=== PATIENT | male | born 1965 | race Two or more races ===

== ENCOUNTER 2019-06-11 21:58 | Inpatient (IN) | payer MEDICAID ==
[~2019-06-11] VITALS: Ht 167.6 cm; Wt 90.7 kg
[2019-06-11] MEDS ORDERED: FAMOTIDINE 20MG/2ML VIAL IV STA (22:22)
[2019-06-11] MEDS ORDERED: ONDANSETRON HCL 4MG/2ML INJ IV STA (22:22)
[2019-06-11] MEDS ORDERED: MORPHINE SULFATE 4 MG/ML CPJ (NOT FOR IM USE) IV STA (22:22)
[2019-06-11] MEDS ORDERED: SODIUM CHLORIDE 0.9% 1,000 ML IV ONE (22:22)
[2019-06-11 22:56] LABS: BASOPHILS % 0.4 % (0.0-2.0); HEMATOCRIT. 42.2 % (42.0-52.0); LYMPHOCYTES % 9.1 % (20.0-50.0); MEAN CORPUSCULAR HEMOGLOBIN 27.8 pg (28.0-32.0); MEAN CORPUSCULAR VOLUME 83.9 fL (80.0-94.0); MEAN PLATELET VOLUME 7.2 fl (7.4-10.4); NEUTROPHILS % 86.5 % (40.0-76.0); PLATELET 281 x1000/uL (130-400); RED BLOOD CELL COUNT 5.03 mill/uL (4.7-6.1); RED CELL DISTRIBUTION WIDTH 15.8 % (11.6-14.6)
[2019-06-11 23:02] LABS: CHLORIDE 104 mEq/L (98-107); INR 1.1
[2019-06-12] MEDS ORDERED: IOHEXOL-300 100 ML BOTTLE ONE (00:30)
[2019-06-12] MEDS ORDERED: PIPERACILLIN/TAZ 3.375G PREMIX 50 ML IV ONE (00:45)
[2019-06-12] MEDS ORDERED: SODIUM CHLORIDE 0.9% 1,000 ML IV ONE (01:32)
[2019-06-12] MEDS ORDERED: LIDOCAINE HCL/PF 1% 10 MG/ML 5ML VIAL ONE (04:03)
[2019-06-12] MEDS ORDERED: PROPOFOL 200MG/20ML VIAL IV ONE (04:03)
[2019-06-12] MEDS ORDERED: ROCURONIUM BROMIDE 10MG/ML VIAL 5ML IV ONE (04:03)
[2019-06-12] MEDS ORDERED: FENTANYL CITRATE/PF 50MCG/ML 5ML VIAL ONE (04:03)
[2019-06-12] MEDS ORDERED: MIDAZOLAM HCL 2 MG/2 ML VIAL ONE (04:03)
[2019-06-12] MEDS ORDERED: DEXAMETHASONE 4MG/ML 1ML VIAL ONE (04:03)
[2019-06-12] MEDS ORDERED: ONDANSETRON HCL 4MG/2ML INJ ONE (04:04)
[2019-06-12] MEDS ORDERED: SUCCINYLCHOLINE CHLORIDE 200MG/10ML IV ONE (04:18)
[2019-06-12] MEDS ORDERED: DEXT 5%/0.45% NACL KCL 20MEQ/L 1,000 ML IV SCH (04:51)
[2019-06-12] MEDS ORDERED: ACETAMINOPHEN 650MG SUPP PR PRN (05:00)
[2019-06-12] MEDS ORDERED: ONDANSETRON HCL 4MG/2ML INJ IV PRN ×2 (05:00→05:30)
[2019-06-12] MEDS ORDERED: CEFAZOLIN SODIUM 1000MG/VIAL ONE (05:13)
[2019-06-12] MEDS ORDERED: MORPHINE SULFATE 2 MG/ML CPJ (NOT FOR IM USE) IV PRN (05:30)
[2019-06-12] MEDS ORDERED: LORAZEPAM 2MG/ML CPJ IV PRN (05:30)
[2019-06-12] MEDS ORDERED: DIPHENHYDRAMINE 50MG/ML VIAL IV PRN (05:30)
[2019-06-12] MEDS ORDERED: DOCUSATE SODIUM 100MG CAPSULE PO PRN (05:30)
[2019-06-12] MEDS ORDERED: GUAIFENESIN 200MG/10ML SUGAR FREE UDC PO PRN (05:30)
[2019-06-12] MEDS ORDERED: HYDROCODONE/ACETAMINOPHEN 5/325MG TABLET PO PRN (05:30)
[2019-06-12] MEDS ORDERED: CLONIDINE 0.1MG TABLET PO PRN (05:30)
[2019-06-12] MEDS ORDERED: ACETAMINOPHEN 325MG TABLET PO PRN (05:30)
[2019-06-12] MEDS ORDERED: MAGNESIUM/ALUMINUM HYDROXIDE/SIMETHICONE 30ML UDC PO PRN (05:30)
[2019-06-12] MEDS ORDERED: NA PHOS,M-B/NA PHOS,DI-BA ENEMA 118ML PR PRN (05:30)
[2019-06-12] MEDS ORDERED: BUPIVACAINE HCL/PF 0.5% (5MG/ML) 10ML ONE (05:37)
[2019-06-12] MEDS ORDERED: NEOSTIGMINE METHYLSULFATE 1MG/ML 10 ML VIAL ONE (05:38)
[2019-06-12] MEDS ORDERED: GLYCOPYRROLATE 0.2 MG/ML 2ML VIAL ONE (05:38)
[2019-06-12] MEDS ORDERED: BUPIVACAINE HCL 0.5% 125 ML in ON-Q PM012 DRUG DELIV DEVICE 1 EA IR SCH (05:45)
[2019-06-12] MEDS ORDERED: MEPERIDINE HCL/PF 25MG/ML CPJ IV PRN (06:45)
[2019-06-12] MEDS ORDERED: HYDROMORPHONE HCL/PF 2MG/ML CPJ IV PRN (06:45)
[2019-06-12] MEDS ORDERED: LABETALOL 5MG/ML SYR 20 MG/4 ML SYRINGE IV PRN (07:00)
[2019-06-12] MEDS ORDERED: IPRATROPIUM/ALBUTEROL 0.5-3(2.5)MG/3ML NEB NEB PRN (07:25)
[2019-06-12 08:00] VITALS: BP 139/89
[2019-06-12 08:30] VITALS: BP 139/89
[2019-06-12] MEDS: DEXT 5%/0.45% NACL 1000ML 1,000 ML IV SCH ×2 (08:37→20:52)
[2019-06-12 08:46] LABS: CHLORIDE 108 mEq/L (98-107)
[2019-06-12 12:00] VITALS: BP 146/95
[2019-06-12 16:00] VITALS: BP 134/87
[2019-06-12] MEDS: FAMOTIDINE 20MG/2ML VIAL IV SCH ×2 (18:21→20:52)
[2019-06-12] MEDS: MORPHINE SULFATE 2 MG/ML CPJ (NOT FOR IM USE) IV PRN (18:28)
[2019-06-12 20:00] VITALS: BP 141/86
[2019-06-13] VITALS: BP 147/90
[2019-06-13 04:45] VITALS: BP 131/87
[2019-06-13 07:14] LABS: BASOPHILS % 0.2 % (0.0-2.0); EOSINOPHILS % 0.8 % (0.0-5.0); HEMATOCRIT. 37.4 % (42.0-52.0); HEMOGLOBIN. 12.5 g/dL (14.0-18.0); LYMPHOCYTES % 12.4 % (20.0-50.0); MEAN CORPUSCULAR HEMOGLOBIN 28.4 pg (28.0-32.0); MEAN PLATELET VOLUME 7.3 fl (7.4-10.4); MONOCYTES % 11.2 % (2.0-8.0); NEUTROPHILS % 75.4 % (40.0-76.0); PLATELET 232 x1000/uL (130-400); RED CELL DISTRIBUTION WIDTH 16.1 % (11.6-14.6)
[2019-06-13 07:48] LABS: CHLORIDE 107 mEq/L (98-107)
[2019-06-13 08:00] VITALS: BP 138/83
[2019-06-13 08:06] LABS: LDL CHOLESTEROL 75 mg/dL (5-100)
[2019-06-13 08:08] LABS: HDL CHOLESTEROL 45 mg/dL (40-59); T4 FREE 1.34 ng/dL (0.76-1.46)
[2019-06-13] MEDS: FAMOTIDINE 20MG/2ML VIAL IV SCH ×2 (08:12→20:33)
[2019-06-13] MEDS: DEXT 5%/0.45% NACL 1000ML 1,000 ML IV SCH (10:11)
[2019-06-13] MEDS: PIPERACILLIN/TAZOBACTAM 3.375 G in DEXT 5% WATER 100 ML IV SCH ×3 (10:55→20:33)
[2019-06-13 12:00] VITALS: BP 127/83
[2019-06-13 16:00] VITALS: BP 132/81
[2019-06-13 20:00] VITALS: BP 135/95
[2019-06-14] VITALS: BP 134/85
[2019-06-14] MEDS: PIPERACILLIN/TAZOBACTAM 3.375 G in DEXT 5% WATER 100 ML IV SCH ×4 (03:05→20:20)
[2019-06-14] MEDS: DEXT 5%/0.45% NACL 1000ML 1,000 ML IV SCH ×2 (03:06→12:49)
[2019-06-14 04:00] VITALS: BP 119/82
[2019-06-14 06:44] LABS: BASOPHILS % 0.3 % (0.0-2.0); EOSINOPHILS % 3.7 % (0.0-5.0); HEMATOCRIT. 36.8 % (42.0-52.0); HEMOGLOBIN. 12.2 g/dL (14.0-18.0); LYMPHOCYTES % 14.6 % (20.0-50.0); MEAN CORPUSCULAR VOLUME 84.5 fL (80.0-94.0); MEAN PLATELET VOLUME 7.5 fl (7.4-10.4); MONOCYTES % 11.1 % (2.0-8.0); NEUTROPHILS % 70.3 % (40.0-76.0); PLATELET 228 x1000/uL (130-400); RED BLOOD CELL COUNT 4.35 mill/uL (4.7-6.1); RED CELL DISTRIBUTION WIDTH 15.6 % (11.6-14.6)
[2019-06-14 08:00] VITALS: BP 132/86
[2019-06-14] MEDS: FAMOTIDINE 20MG/2ML VIAL IV SCH ×2 (09:04→20:37)
[2019-06-14 12:00] VITALS: BP 120/90
[2019-06-14 16:00] VITALS: BP 127/88
[2019-06-14 20:00] VITALS: BP 108/83
[2019-06-15] VITALS: BP 129/83
[2019-06-15 04:00] VITALS: BP 122/81
[2019-06-15] MEDS: PIPERACILLIN/TAZOBACTAM 3.375 G in DEXT 5% WATER 100 ML IV SCH ×4 (04:40→21:44)
[2019-06-15 07:39] LABS: BASOPHILS % 0.4 % (0.0-2.0); EOSINOPHILS % 4.4 % (0.0-5.0); HEMATOCRIT. 37.3 % (42.0-52.0); HEMOGLOBIN. 12.4 g/dL (14.0-18.0); LYMPHOCYTES % 18.4 % (20.0-50.0); MEAN CORPUSCULAR HEMOGLOBIN 27.9 pg (28.0-32.0); MEAN PLATELET VOLUME 7.7 fl (7.4-10.4); MONOCYTES % 10.2 % (2.0-8.0); NEUTROPHILS % 66.6 % (40.0-76.0); PLATELET 243 x1000/uL (130-400); RED BLOOD CELL COUNT 4.45 mill/uL (4.7-6.1); RED CELL DISTRIBUTION WIDTH 15.6 % (11.6-14.6)
[2019-06-15 07:58] LABS: CHLORIDE 101 mEq/L (98-107)
[2019-06-15 08:00] VITALS: BP 112/79
[2019-06-15] MEDS: FAMOTIDINE 20MG/2ML VIAL IV SCH ×2 (09:44→21:43)
[2019-06-15] MEDS: DEXT 5%/0.45% NACL 1000ML 1,000 ML IV SCH ×3 (09:53→21:54)
[2019-06-15 12:00] VITALS: BP 117/85
[2019-06-15 20:00] VITALS: BP 120/82
[2019-06-16] VITALS: BP 125/84
[2019-06-16] MEDS: PIPERACILLIN/TAZOBACTAM 3.375 G in DEXT 5% WATER 100 ML IV SCH ×3 (02:28→14:55)
[2019-06-16 04:00] VITALS: BP 130/82
[2019-06-16 05:53] LABS: CHLORIDE 102 mEq/L (98-107)
[2019-06-16 06:11] LABS: BASOPHILS % 0.4 % (0.0-2.0); EOSINOPHILS % 6.6 % (0.0-5.0); HEMATOCRIT. 35.3 % (42.0-52.0); HEMOGLOBIN. 11.7 g/dL (14.0-18.0); LYMPHOCYTES % 25.3 % (20.0-50.0); MEAN CORPUSCULAR HEMOGLOBIN 27.6 pg (28.0-32.0); MEAN CORPUSCULAR VOLUME 83.4 fL (80.0-94.0); MEAN PLATELET VOLUME 7.5 fl (7.4-10.4); MONOCYTES % 11.8 % (2.0-8.0); NEUTROPHILS % 55.9 % (40.0-76.0); PLATELET 249 x1000/uL (130-400); RED BLOOD CELL COUNT 4.23 mill/uL (4.7-6.1); RED CELL DISTRIBUTION WIDTH 15.6 % (11.6-14.6)
[2019-06-16 08:00] VITALS: BP 113/72
[2019-06-16] MEDS: FAMOTIDINE 20MG/2ML VIAL IV SCH (08:37)
[2019-06-16] MEDS ORDERED: POTASSIUM CHLORIDE 20MEQ TABLET SR PO NR (09:00)
[2019-06-16 12:00] VITALS: BP 121/70
[2019-06-16] MEDS: MORPHINE SULFATE 2 MG/ML CPJ (NOT FOR IM USE) IV PRN (14:55)
[2019-06-16 16:17] VITALS: BP 123/72
[2019-06-16 17:38] VITALS: BP 113/73
[2019-06-16] MEDS: DEXT 5%/0.45% NACL 1000ML 1,000 ML IV SCH (18:08)
== END 2019-06-16 19:15 | disposition home or self-care (01) | DRG 223 ==
LOC: ER 21:58 → 5WST 06-12 01:55 → ENRESERV 06-12 06:58
PROVIDERS: ADMIT Internal Medicine; ATTEND Internal Medicine
PROC: 0DC80ZZ Extirpation of Matter from Small Intestine, Open Approach (ICD-10-PCS; principal; 2019-06-12)
DX: K56.3 Gallstone ileus (principal); R65.10 Systemic inflammatory response syndrome (SIRS) of non-infectious origin without acute organ dysfunction; E86.0 Dehydration
CPT/HCPCS: 36415; 71045; 74177; 76705; 80048; 80061; 83605; 84439; 84443; 84484; 86850; 86900; 88300; 93005; 96361; 96365; 96375; 97116; 97162; 99291; J0330; J0690; J1100; J2250; J2270; J2405; J2543; J2704; J2710; J3010; J3490; J7030; J7060; Q9967